=== PATIENT | female | born 1945 | race Caucasian/White ===

== ENCOUNTER 2017-10-12 06:59 | Day surgery (SDC) | payer OTHER, BC ==
[2017-10-11 15:17] VITALS: BMI 29.5
[2017-10-12] MEDS ORDERED: PROPOFOL 20 ML ONE ×2 (07:30)
[2017-10-12] MEDS ORDERED: LIDOCAINE HCL 2% (20ML MULTI-DOSE VIAL) NR ONE (07:30)
[2017-10-12 08:34] VITALS: TEMP 97.4
[2017-10-12 09:48] VITALS: BP 124/54; PULSE 67
--- NOTE | 2017-10-15 09:23 | PATH ---
Surgical Pathology Report Patient Name: [facility]. Rec. #: [id number] /Age/Gender: 1945 (Age: 72) / F Account: [id number] Location: [facility]-ENDOSCOPY Taken: 10/12/2017 Received: 10/12/2017 Reported: 10/15/2017 Physicians: Payal France M.D. Specimen(s) Received A: BX RECTAL POLYP B: BX PROXIMAL TRANSVERSE COLON POLYP Clinical History Preoperative diagnosis: Colon cancer screening, change in bowel habits Postoperative diagnosis: Diverticulosis, colon polyps Final Diagnosis A. RECTUM, POLYP, BIOPSY: HYPERPLASTIC POLYP. B. TRANSVERSE COLON, POLYP, BIOPSY: POLYPOID COLONIC MUCOSA WITH PROMINENT LYMPHOID AGGREGATE. Electronically Signed Radha Qiu M.D. Gross Description A. Received in formalin, labeled "biopsy rectal polyp" is a carr, irregular portion of soft tissue measuring 0.2 cm. in greatest dimension. The specimen is submitted in toto in one cassette. B. Received in formalin, labeled "biopsy proximal transverse colon polyp" are 7 carr, irregular portions of soft tissue ranging from 0.1-0.3 cm. in greatest dimension. The specimens are submitted in toto in one cassette. /10/12/2017 saudi10/12/2017
== END 2017-10-12 10:50 | disposition home or self-care (01) ==
LOC: JASU-ENDO 06:59
PROVIDERS: ATTEND Internal Medicine Gastroenterology
PROC: 0DBL8ZX Excision of Transverse Colon, Via Natural or Artificial Opening Endoscopic, Diagnostic (ICD-10-PCS; 2017-10-12)
PROC: 0DBP8ZX Excision of Rectum, Via Natural or Artificial Opening Endoscopic, Diagnostic (ICD-10-PCS; principal; 2017-10-12 07:30)
DX: Z12.11 Encounter for screening for malignant neoplasm of colon (principal); K57.30 Diverticulosis of large intestine without perforation or abscess without bleeding; K62.1 Rectal polyp; D12.3 Benign neoplasm of transverse colon
CPT/HCPCS: 88305-TC

== ENCOUNTER 2018-10-15 21:03 | Emergency (ER) | payer OTHER, BC ==
--- NOTE | 2018-10-15 21:12 | PDOC ---
Rapid Medical Evaluation Medical Evaluation: Allergies Allergy/AdvReac Type Severity Reaction Status Date / Time No Known Drug Allergies Allergy Verified 11/10/14 10:59 I have performed a brief in-person evaluation of this patient. The patient presents with a chief complaint of: s/p trip and fell over sidewalk today; no LOC, denies n/v; is on ASA for Atrial fibrillation Pertinent physical exam findings: +Bruise and swelling along L eyebrow, EOMI, neck supple, no focal deficits I have ordered the following: CT head The patient will proceed to the ED for further evaluation. 10/15/18 21:09
[2018-10-15 21:15] VITALS: BP 127/103; PULSE 87; TEMP 98
[2018-10-15] MEDS ORDERED: ACETAMINOPHEN 500 MG TABLET (FP) PO ONE (22:04)
[2018-10-15] MEDS ORDERED: ACETAMINOPHEN 500 MG TABLET (FP) ONE (22:06)
--- NOTE | 2018-10-15 22:10 | PDOC ---
History of Present Illness - General Chief Complaint: Injury Stated Complaint: HEAD INJURY Time Seen by Provider: 10/15/18 21:09 - History of Present Illness Initial Comments: 10/15/18 22:08 73-year-old female with a past medical history significant for atrial fibrillation. 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 She now takes baby aspirin daily presents for evaluation after slip and fall. She complains of headache no post injury nausea vomiting or visual changes. No LOC. Past History - Past Medical History Allergies/Adverse Reactions: Allergies Allergy/AdvReac Type Severity Reaction Status Date / Time No Known Drug Allergies Allergy Verified 11/10/14 10:59 Home Medications: Ambulatory Orders Atorvastatin Ca [Lipitor] 40 mg PO HS #0 tablet 11/05/12 Yovany/D3/Mag11/Zinc/Brush Machine Setter/Jacob/Bor [Caltrate 600+D Plus Tablet] 1 each PO DAILY Metoprolol Succinate [Toprol XL -] 25 mg PO DAILY 10/11/17 Multivitamin,Ther and Minerals [Vitamin and Minerals] 1 each PO DAILY 10/11/17 Polyethylene Glycol 3350 [Miralax 255 gm Btl -] 17 gm PO DAILY 10/11/17 Polyethylene Glycol 3350 [Miralax (For Daily Use) -] 17 gm PO DAILY #1 bottle Rivaroxaban [Xarelto -] 20 mg PO DAILY #30 tablet 10/12/17 Cardiac Disorders: Yes (PAROXYSMAL ATRIAL FIBRILLATION, MILD AORTIC REGURGITATION) CVA: No COPD: No CHF: Yes (JESUS CAUSING CHF) Dementia: No Diabetes: No GI Disorders: Yes (DIVERTICULITIS WITH ABSCESS, DIVERTICULOSIS) Disorders: No HTN: No Hypercholesterolemia: Yes Liver Disease: No Seizures: No Thyroid Disease: No - Surgical History Abdominal Surgery: Yes (UMBILICAL HERNIA REPAIR) Appendectomy: Yes Cardiac Surgery: Yes (ABLATION X 2. FAILED CARDIOVERSION) Cholecystectomy: No Lung Surgery: No Neurologic Surgery: No Orthopedic Surgery: Yes (bilateral arthrosopies) - Suicide/Smoking/Psychosocial Hx Smoking History: Never smoked Have you smoked in the past 12 months: No Information on smoking cessation initiated: No Hx Alcohol Use: No Drug/Substance Use Hx: No Substance Use Type: None Hx Substance Use Treatment: No Review of Systems - Review of Systems Neurological: Yes: Headache *Physical Exam - Vital Signs Last Vital Signs Temp Pulse Resp BP Pulse Ox 98.0 F 87 16 127/103 H 98 10/15/18 21:12 10/15/18 21:12 10/15/18 21:12 10/15/18 21:12 10/15/18 21:12 - Physical Exam Comments: 10/15/18 22:09 HEAD: NC there is a large hematoma about the left periorbital area EYES: Conjuntiva clear with extraocular movement Ears: Canals and TM's normal NOSE: No d/c THROAT: Moist mucous membrances, oral pharanx clear, uvula midline NECK: Supple without adenopathy CARDIAC: S1 S2 LUNGS: CTA Full and Equal breath sounds ABDOMEN: Soft NT ND MS: Full ROM in all joints without edema NEUROLOGIC: No gross sensory or motor deficits, NVID SKIN: Normal color and temperature no lesions or rashes Moderate Sedation - Procedure Monitoring Vital Signs: Procedure Monitoring Vital Signs Temperature 98.0 F 10/15/18 21:12 Pulse Rate 87 10/15/18 21:12 Respiratory Rate 16 10/15/18 21:12 Blood Pressure 127/103 H 10/15/18 21:12 O2 Sat by Pulse Oximetry (%) 98 10/15/18 21:12 ED Treatment Course - RADIOLOGY Radiology Studies Ordered: Category Date Time Status FACIAL BONES CT W/O CONTRAST [CT] Stat CT Scan 10/15/18 22:07 Ordered Medical Decision Making - Medical Decision Making 10/15/18 22:09 Discussed this case with the emergency room attending. Patient requires admission on aspirin head trauma. I've also ordered a CT of facial bones. 10/15/18 22:10 Transfer to main ER at this time. *DC/Admit/Observation/Transfer Diagnosis at time of Disposition: Closed head injury - Referrals - Patient Instructions - Post Discharge Activity
--- NOTE | 2018-10-15 22:11 | PDOC ---
*Physical Exam - Vital Signs Last Vital Signs Temp Pulse Resp BP Pulse Ox 98.0 F 87 16 127/103 H 98 10/15/18 21:12 10/15/18 21:12 10/15/18 21:12 10/15/18 21:12 10/15/18 21:12 <Sarita Campbell - Last Filed: 10/15/18 22:33> - Vital Signs Last Vital Signs Temp Pulse Resp BP Pulse Ox 98.0 F 87 16 127/103 H 98 10/15/18 21:12 10/15/18 21:12 10/15/18 21:12 10/15/18 21:12 10/15/18 21:12 - Physical Exam General Appearance: Yes: Appropriately Dressed Musculoskeletal: positive: Other (right humerus pain on ) <Huyen Jensen - Last Filed: 10/15/18 23:23> ED Treatment Course - Medications Given in the ED: ED Medications Discontinued Medications Generic Name Dose Route Start Last Admin Trade Name Freq PRN Reason Stop Dose Admin Acetaminophen 1,000 mg 10/15/18 22:04 10/15/18 22:08 Tylenol - PO 10/15/18 22:05 1,000 mg ONCE ONE Administration <Sarita Campbell - Last Filed: 10/15/18 22:33> - Medications Given in the ED: ED Medications Discontinued Medications Generic Name Dose Route Start Last Admin Trade Name Freq PRN Reason Stop Dose Admin Acetaminophen 1,000 mg 10/15/18 22:04 10/15/18 22:08 Tylenol - PO 10/15/18 22:05 1,000 mg ONCE ONE Administration <Huyen Jensen - Last Filed: 10/15/18 23:23> Medical Decision Making - Medical Decision Making 10/15/18 22:14 Patient seen by the advanced practice provider under my direct supervision. Ancillary testing reviewed as necessary. I agree with plan as outlined by the advanced practice provider. <Sarita Campbell - Last Filed: 10/15/18 22:33> *DC/Admit/Observation/Transfer <Sarita Campbell - Last Filed: 10/15/18 22:33> <Huyen Jensen - Last Filed: 10/15/18 23:23> Diagnosis at time of Disposition: Closed head injury Qualifiers: Encounter type: initial encounter Qualified Code(s): S09.90XA - Unspecified injury of head, initial encounter - Discharge Dispostion Disposition: HOME - Patient Instructions Printed Discharge Instructions: DI for Closed Head Injury Additional Instructions: apply ice to area. rest and relax as much as possible. please follow up with your doctor Additional Instructions: * Please call your personal physician to report your Emergency Department visit and to report your progress, if any. * If there is no improvement in symptoms in 2 days call your physician. * Return to the Emergency Department for any worsening symptoms.
== END 2018-10-15 23:38 | disposition home or self-care (01) ==
LOC: JER 21:03
DX: S09.90XA Unspecified injury of head, initial encounter (principal); I48.91 Unspecified atrial fibrillation; W01.0XXA Fall on same level from slipping, tripping and stumbling without subsequent striking against object, initial encounter; Y93.89 Activity, other specified; Y92.89 Other specified places as the place of occurrence of the external cause; I50.9 Heart failure, unspecified; E78.00 Pure hypercholesterolemia, unspecified
CPT/HCPCS: 70450-TC; 70486-TC; 73060-TC-RT-FY; 99281-25

== ENCOUNTER 2021-08-02 11:00 | Inpatient (IN) | payer OTHER, BC ==
[2021-07-27 11:12] VITALS: BMI 30.5
[2021-08-16] MEDS ORDERED: BUPIVACAINE LIPOSOME/PF (EXPAREL) 266 MG/20 ML VIAL ONE (07:22)
[2021-08-16] MEDS ORDERED: GENTAMICIN SO4 80 MG/2 ML VIAL ONE (07:22)
[2021-08-16] MEDS ORDERED: THROMBIN (BOVINE) 20,000 UNIT VIAL TP ONE (07:22)
[2021-08-16] MEDS ORDERED: VANCOMYCIN 1,000 MG VIAL (RESTRICTED TO ID ONLY) ONE ×2 (07:22→09:03)
[2021-08-16] MEDS ORDERED: LIDOCAINE 1%/EPI 1:100000 (20 ML MULTI DOSE VIAL) ONE (07:23)
[2021-08-16] MEDS ORDERED: LIDOCAINE HCL 2% 100 MG/5 ML DISP.SYRIN ONE (07:27)
[2021-08-16] MEDS ORDERED: ROCURONIUM BROMIDE 50 MG/5 ML SYRINGE ONE ×2 (07:28→09:04)
[2021-08-16] MEDS ORDERED: SUCCINYLCHOLINE CHLORIDE 200 MG/10 ML SYRINGE ONE (07:28)
[2021-08-16] MEDS ORDERED: fentaNYL CITRATE 250 MCG/5 ML VIAL ONE (07:28)
[2021-08-16] MEDS ORDERED: MIDAZOLAM HCL 2 MG/2 ML SINGLE DOSE VIAL ONE (07:28)
[2021-08-16] MEDS ORDERED: PROPOFOL 20 ML ONE (07:28)
[2021-08-16] MEDS ORDERED: SCOPOLAMINE HYDROBROMIDE 1 PATCH PATCH.TD72 ONE (07:46)
[2021-08-16] MEDS ORDERED: PROMETHAZINE HCL 25 MG/1 ML VIAL IVPUSH PRN (08:05)
[2021-08-16] MEDS ORDERED: ONDANSETRON 4 MG/2 ML VIAL IVPUSH PRN ×2 (08:05→11:14)
[2021-08-16] MEDS ORDERED: LACTATED RINGERS SOLUTION 1,000 ML IV SCH (08:15)
[2021-08-16] MEDS ORDERED: PHENYLEPHRINE HCL 10 MG/1 ML SINGLE DOSE VIAL ONE ×2 (08:24→10:28)
[2021-08-16] MEDS ORDERED: VANCOMYCIN 1,000 MG VIAL (RESTRICTED TO ID ONLY) IVPB ONE (08:45)
[2021-08-16] MEDS ORDERED: ceFAZolin SODIUM 1 GM VIAL IVPB ONE (08:45)
[2021-08-16] MEDS ORDERED: LIDOCAINE 1%/EPI 1:100000 (20 ML MULTI DOSE VIAL) IJ ONE (08:48)
[2021-08-16] MEDS ORDERED: TRANEXAMIC ACID 1000 MG/10 ML VIAL ONE (09:03)
[2021-08-16] MEDS ORDERED: ceFAZolin SODIUM 1 GM VIAL ONE (09:03)
[2021-08-16] MEDS ORDERED: DEXAMETHASONE SOD PHOSPHATE 4 MG/1 ML VIAL ONE (09:03)
[2021-08-16] MEDS ORDERED: ONDANSETRON 4 MG/2 ML VIAL ONE ×2 (09:03→11:42)
[2021-08-16] MEDS ORDERED: KETAMINE HCL 200 MG/20 ML VIAL ONE (09:16)
[2021-08-16] MEDS ORDERED: HYDROmorphone HCl 2 MG/ML VIAL ONE (09:35)
[2021-08-16] MEDS ORDERED: VANCOMYCIN 1 GM in NS (PRE-DOCKED) 1,000 MG/250 ML IVPB ONE (10:18)
[2021-08-16] MEDS ORDERED: BUPIVACAINE HCL/PF 0.5% (5 MG/ML) 30 ML VIAL IJ ONE (10:30)
[2021-08-16] MEDS ORDERED: BUPIVACAINE LIPOSOME/PF (EXPAREL) 266 MG/20 ML VIAL NR ONE (10:30)
[2021-08-16] MEDS ORDERED: NEOSTIGMINE METHYLSULFATE 0.5 MG/1 ML - 10 ML MDV ONE (10:33)
[2021-08-16] MEDS ORDERED: diazePAM CARPU-JECT 10 MG/2 ML DISP.SYRIN IVPUSH PRN (11:14)
[2021-08-16] MEDS ORDERED: oxyCODONE HCL 5 MG TABLET PO PRN ×2 (11:14)
[2021-08-16] MEDS ORDERED: HYDROmorphone HCl 2 MG/ML VIAL SQ PRN (11:14)
[2021-08-16] MEDS: LACTATED RINGERS SOLUTION 1,000 ML IV SCH (16:40)
[2021-08-16] MEDS: CEFAZOLIN 2 GM in SODIUM CHLORIDE 100 ML IVPB SCH ×3 (17:15→22:30)
[2021-08-16] MEDS: ACETAMINOPHEN 1000 MG/100 ML BAG IVPB PRN (18:57)
[2021-08-16] MEDS: HYDROmorphone HCl 2 MG/ML VIAL IVPB PRN (20:37)
[2021-08-16] MEDS: ATORVASTATIN CA 40 MG TABLET (FP) PO SCH (21:09)
[2021-08-17] MEDS: LACTATED RINGERS SOLUTION 1,000 ML IV SCH ×3 (02:32→21:52)
[2021-08-17] MEDS: HYDROmorphone HCl 2 MG/ML VIAL IVPB PRN ×2 (02:38→08:34)
[2021-08-17] MEDS ORDERED: diphenhydrAMINE HCL 25 MG CAPSULE (FP) PO PRN (08:27)
[2021-08-17] MEDS ORDERED: ceFAZolin SODIUM 1 GM VIAL ONE ×2 (09:14→17:24)
[2021-08-17] MEDS ORDERED: DEXTROSE 5%-WATER - 50 ML IVPB ONE ×2 (09:15→17:24)
[2021-08-17] MEDS: HEPARIN NA (PORCINE) 5,000 UNITS/ML 1ML VIAL SQ SCH ×3 (09:21→21:53)
[2021-08-17] MEDS: FERROUS SO4 325 MG TABLET (FP) PO SCH (09:22)
[2021-08-17] MEDS: FOLIC ACID 1 MG TABLET (FP) PO SCH (09:22)
[2021-08-17] MEDS: CEFAZOLIN 1 GM in DEXTROSE 5%-WATER - 50 ML IVPB SCH ×2 (09:24→17:28)
[2021-08-17] MEDS ORDERED: POLYETHYLENE GLYCOL 3350 255 GM BTL PO SCH (10:00)
[2021-08-17 10:16] LABS: HEMOGLOBIN 11.4 GM/dL (10.7-15.3); MCHC 33.6 g/dl (32.0-36.0); MEAN CELL VOLUME 92.2 fl (80-96); MEAN PLT VOLUME 8.3 fl (7.5-11.1); PLATELET COUNT 213 10^3/uL (134-434); RBC 3.68 M/mm3 (3.60-5.2); RDW 14.4 % (11.6-15.6); WHITE BLOOD COUNT 9.3 K/mm3 (4.0-10.0)
[2021-08-17 11:12] LABS: BLOOD UREA NITROGEN 18.1 mg/dL (7-18); CALCIUM 8.8 mg/dL (8.5-10.1)
[2021-08-17 11:16] LABS: CREATININE 0.8 mg/dL (0.55-1.3)
[2021-08-17] MEDS ORDERED: oxyCODONE HCL 5 MG TABLET PO PRN ×2 (11:51)
[2021-08-17] MEDS ORDERED: POLYETHYLENE GLYCOL (HEALTHYLAX) 3350 17 GM PACKET PO SCH (12:08)
[2021-08-17] MEDS: POLYETHYLENE GLYCOL (HEALTHYLAX) 3350 17 GM PACKET PO SCH (12:23)
[2021-08-17] MEDS: DOCUSATE SODIUM 100 MG CAPSULE (FP) PO SCH ×2 (13:38→21:52)
[2021-08-17] MEDS: ACETAMINOPHEN 1000 MG/100 ML BAG IVPB PRN (17:28)
[2021-08-17] MEDS: ATORVASTATIN CA 40 MG TABLET (FP) PO SCH (21:52)
[2021-08-18] MEDS ORDERED: ceFAZolin SODIUM 1 GM VIAL ONE (01:07)
[2021-08-18] MEDS ORDERED: DEXTROSE 5%-WATER - 50 ML IVPB ONE (01:07)
[2021-08-18] MEDS: CEFAZOLIN 1 GM in DEXTROSE 5%-WATER - 50 ML IVPB SCH (01:22)
[2021-08-18] MEDS: DOCUSATE SODIUM 100 MG CAPSULE (FP) PO SCH ×3 (05:19→21:19)
[2021-08-18] MEDS: HEPARIN NA (PORCINE) 5,000 UNITS/ML 1ML VIAL SQ SCH ×3 (05:19→21:19)
[2021-08-18 08:48] LABS: HEMATOCRIT 31.4 % (32.4-45.2); HEMOGLOBIN 10.3 GM/dL (10.7-15.3); MCH 30.7 pg (25.7-33.7); MCHC 32.8 g/dl (32.0-36.0); MEAN CELL VOLUME 93.4 fl (80-96); MEAN PLT VOLUME 8.9 fl (7.5-11.1); PLATELET COUNT 157 10^3/uL (134-434); RBC 3.36 M/mm3 (3.60-5.2); WHITE BLOOD COUNT 5.9 K/mm3 (4.0-10.0)
[2021-08-18 09:06] LABS: CALCIUM 8.3 mg/dL (8.5-10.1)
[2021-08-18 09:07] LABS: BLOOD UREA NITROGEN 12.8 mg/dL (7-18)
[2021-08-18 09:11] LABS: CREATININE 0.5 mg/dL (0.55-1.3)
[2021-08-18] MEDS: POLYETHYLENE GLYCOL (HEALTHYLAX) 3350 17 GM PACKET PO SCH (10:07)
[2021-08-18] MEDS: FERROUS SO4 325 MG TABLET (FP) PO SCH (10:08)
[2021-08-18] MEDS: LACTATED RINGERS SOLUTION 1,000 ML IV SCH ×2 (10:10→20:03)
[2021-08-18] MEDS: FOLIC ACID 1 MG TABLET (FP) PO SCH (10:11)
[2021-08-18] MEDS: ACETAMINOPHEN 500 MG TABLET (FP) PO SCH ×3 (10:12→20:03)
[2021-08-18] MEDS: traMADol HCL 50 MG TABLET PO PRN (10:19)
[2021-08-18] MEDS ORDERED: MELATONIN 5 MG TABLETS PO ONE (20:05)
[2021-08-18] MEDS: ATORVASTATIN CA 40 MG TABLET (FP) PO SCH (21:19)
[2021-08-19] MEDS: ACETAMINOPHEN 500 MG TABLET (FP) PO SCH ×2 (03:21→09:16)
[2021-08-19] MEDS: DOCUSATE SODIUM 100 MG CAPSULE (FP) PO SCH ×2 (05:28→15:29)
[2021-08-19] MEDS: HEPARIN NA (PORCINE) 5,000 UNITS/ML 1ML VIAL SQ SCH ×2 (05:28→15:29)
[2021-08-19 06:45] LABS: HEMATOCRIT 30.3 % (32.4-45.2); HEMOGLOBIN 10.2 GM/dL (10.7-15.3); MCH 30.8 pg (25.7-33.7); MCHC 33.5 g/dl (32.0-36.0); MEAN PLT VOLUME 8.4 fl (7.5-11.1); PLATELET COUNT 165 10^3/uL (134-434); RDW 13.7 % (11.6-15.6); WHITE BLOOD COUNT 5.9 K/mm3 (4.0-10.0)
[2021-08-19] MEDS: POLYETHYLENE GLYCOL (HEALTHYLAX) 3350 17 GM PACKET PO SCH (09:13)
[2021-08-19] MEDS: traMADol HCL 50 MG TABLET PO PRN ×2 (09:14→15:30)
[2021-08-19] MEDS: FERROUS SO4 325 MG TABLET (FP) PO SCH (09:14)
[2021-08-19] MEDS: FOLIC ACID 1 MG TABLET (FP) PO SCH (09:14)
[2021-08-19] MEDS: LACTATED RINGERS SOLUTION 1,000 ML IV SCH ×2 (09:17→14:56)
[2021-08-19 14:19] VITALS: PULSE 72
[2021-08-19 14:46] VITALS: BP 110/70; TEMP 98.6
== END 2021-08-19 17:08 | disposition home or self-care (01) | DRG 455 ==
LOC: J2C 08-16 04:12 → J7W 08-16 16:58
PROVIDERS: ADMIT Neurological Surgery
PROC: 0SG0071 Fusion of Lumbar Vertebral Joint with Autologous Tissue Substitute, Posterior Approach, Posterior Column, Open Approach (ICD-10-PCS; 2021-08-16)
PROC: 0ST20ZZ Resection of Lumbar Vertebral Disc, Open Approach (ICD-10-PCS; 2021-08-16)
PROC: 01NB0ZZ Release Lumbar Nerve, Open Approach (ICD-10-PCS; 2021-08-16)
PROC: 4A11X4G Monitoring of Peripheral Nervous Electrical Activity, Intraoperative, External Approach (ICD-10-PCS; 2021-08-16)
PROC: 0SG00AJ Fusion of Lumbar Vertebral Joint with Interbody Fusion Device, Posterior Approach, Anterior Column, Open Approach (ICD-10-PCS; principal; 2021-08-16 11:00)
DX: M48.062 Spinal stenosis, lumbar region with neurogenic claudication (principal); M47.26 Other spondylosis with radiculopathy, lumbar region; I48.91 Unspecified atrial fibrillation; E78.5 Hyperlipidemia, unspecified; K59.00 Constipation, unspecified; G89.29 Other chronic pain; I10 Essential (primary) hypertension
CPT/HCPCS: 36415; 72131-TC; 76000-TC-FY; 80048; 85027; 86850; 86900; 86901; 94760; 94761; 97116-GP; 97161-GP; J0131; J1644